=== PATIENT | female | born 1950 | race Caucasian/White ===

== ENCOUNTER 2017-04-07 18:30 | Emergency (ER) | payer MEDICARE ==
[2017-04-07 20:10] VITALS: BP 162/74
--- NOTE | 2017-04-07 20:45 | UC ---
Lower Extremity/Ankle HPI - HPI Summary HPI Summary: 67 y/o female with PMHX of HTN and hypothyrodism. She presents to the urgent care c/o severe RT first MPJ pain with swelling and redness since last night. PT states her pain is 6/10 associated with difficulty walking. Patient denies any Hx of DM or gout. She denies any injury to the foot, Denies fever, SOB, N/V /D or chest pain. Patient has not taking anything to alleviate symptoms. - History of Current Complaint Chief Complaint: UCLowerExtremity Stated Complaint: RIGHT FOOT PAIN Time Seen by Provider: 04/07/17 20:14 Hx Obtained From: Patient Hx Last Menstrual Period: n/a Onset/Duration: Sudden Onset, Lasting Hours, Still Present Severity Initially: Moderate Severity Currently: Moderate Pain Intensity: 6 - Allergies/Home Medications Allergies/Adverse Reactions: Allergies Allergy/AdvReac Type Severity Reaction Status Date / Time Codeine Allergy UNRESPONSIV Verified 04/07/17 20:10 E Home Medications: Home Medications Ibuprofen TAB* [Advil TAB*] 600 mg PO Q6H PRN 04/07/17 [History Confirmed ] PMH/Surg Hx/FS Hx/Imm Hx Endocrine History Of: Reports: Thyroid Disease Denies: Diabetes, Hyperthyroidism, Hypothyroidism, Dyslipidemia Cardiovascular History Of: Reports: Hypertension Denies: Cardiac Disorders, Pacemaker/ICD, Myocardial Infarction, Congestive Heart Failure, Atrial Fibrillation, Deep Vein Thrombosis, Bleeding Disorders Respiratory History Of: Denies: COPD, Asthma, Bronchitis, Pneumonia, Pulmonary Embolism GI/ History Of: Denies: Gastroesophageal Reflux, Ulcer, Gastrointestinal Bleed, Gall Bladder Disease, Kidney Stones, Diverticulitis, Renal Disease, Urosepsis Neurological History Of: Reports: Migraine - PRN IMITREX FOR Denies: TIA, CVA, Dementia, Seizures Psychological History Of: Reports: Depression - ON LEXAPRO Denies: Anxiety, Bipolar Disorder, Schizophrenia, Post Traumatic Stress Disorder Cancer History Of: Denies: Lung Cancer, Colorectal Cancer, Breast Cancer, Prostate Cancer, Cervical Cancer Other History Of: Negative For: HIV, Hepatitis B, Hepatitis C, Anticoagulant Therapy - Surgical History Surgical History: Yes Surgery Procedure, Year, and Place: 3 - [id number]. TUBAL( [place]1979. [place]MBILICAL HERNIA([place]1974. LEFT KNE MENISCUS REPAIR- [place]-2009. RIGHT THUMB JOINT REPAIR- ([place])1995. RIGHT STAPEDECTOMY- AT AGE 18. T&A A CHILD; left knee replacement 02/2014. R TKA--2013 - Family History Known Family History: Positive: Hypertension Negative: Cardiac Disease, Diabetes - Social History Alcohol Use: Rare Substance Use Type: None Smoking Status (MU): Former Smoker Amount Used/How Often: 11/17 PPD X 10 YEARS When Did the Patient Quit Smoking/Using Tobacco: 1993 - Immunization History Most Recent Influenza Vaccination: 2011 Most Recent Tetanus Shot: 03/2015 Most Recent Pneumonia Vaccination: NEVER HAD Review of Systems Constitutional: Negative Skin: Negative Eyes: Negative ENT: Negative Respiratory: Negative Cardiovascular: Negative Gastrointestinal: Negative Genitourinary: Negative Motor: Negative Neurovascular: Negative Musculoskeletal: Other: - RT foot MPJ pain with sweling and redness x 1 day Neurological: Negative Psychological: Negative All Other Systems Reviewed And Are Negative: Yes Physical Exam Triage Information Reviewed: Yes Appearance: Well-Appearing, No Pain Distress, Well-Nourished Vital Signs: Initial Vital Signs Pulse 81 04/07/17 20:03 Resp 12 04/07/17 20:03 BP 162/74 04/07/17 20:03 Pulse Ox 100 04/07/17 20:03 Vital Signs Reviewed: Yes Eye Exam: Normal Eyes: Positive: Conjunctiva Clear ENT Exam: Normal ENT: Positive: Hearing grossly normal, Pharynx normal, TMs normal. Negative: Nasal congestion, Tonsillar swelling Dental Exam: Normal Neck exam: Normal Neck: Positive: Supple, Nontender, No Lymphadenopathy Respiratory Exam: Normal Respiratory: Positive: Chest non-tender, Lungs clear, Normal breath sounds Cardiovascular Exam: Normal Cardiovascular: Positive: RRR, No Murmur, Pulses Normal Abdominal Exam: Normal Abdomen Description: Positive: Nontender, No Organomegaly, Soft. Negative: CVA Tenderness (R), CVA Tenderness (L) Bowel Sounds: Positive: Present Musculoskeletal Exam: Normal Musculoskeletal: Positive: ROM Intact, Other: - RT foot first MPJ tenderness on palpation, with erythema and swelling. Decrease ROM. Positive capillary refill. positive sensation, and pulses. Neurological Exam: Normal Psychological Exam: Normal Skin Exam: Normal Skin: Negative: rashes Lower Extremity Course/Dx - Differential Dx/Diagnosis Differential Diagnosis/HQI/PQRI: Arthritis, Cellulitis, Fracture (Closed), Gout , Puncture Wound Provider Diagnoses: Right foot first MPJ pain. Discharge - Discharge Plan Condition: Stable Disposition: HOME Patient Education Materials: Gout (ED) Referrals: Sonia Solano MD [Primary Care Provider] - 1 Week Additional Instructions: Patient advised to take her Advil 200mtabs PO q6hrs prn to alleviate symptoms. Blood work Sent to lab. Result will be sent to PCP. Please f/u with your PCP for further work up one 1 week. If symptoms worsen please go to the Ed or return to the urgent care in the next 2-3 days.
--- NOTE | 2017-04-07 20:56 | RAD ---
INDICATION: Atraumatic pain at the first metatarsal-phalangeal joint. COMPARISON: None. TECHNIQUE: 3 views of the right foot were obtained. FINDINGS: The adequately corticated bones are properly aligned. Joint spaces appear maintained. No fracture, dislocation or focal bony abnormality is seen. Enthesophyte formation at the calcaneal tubercle at the origin the plantar fascia is noted. IMPRESSION: Normal radiograph of the right foot. If the patient's symptoms persist, follow-up imaging is recommended.
[2017-04-08 10:12] LABS: Hematocrit 39 % (35-47); Hemoglobin 12.9 g/dl (12.0-16.0); Mean Corpuscular HGB Conc 33 g/dl (31-36); Mean Corpuscular Hemoglobin 27 pg (27-31); Mean Corpuscular Volume 82 fL (80-97); Mean Platelet Volume 8 um3 (7.4-10.4); Red Blood Count 4.76 10^6/ul (4.0-5.4); Red Cell Distribution Width 14 % (10.5-15); White Blood Count 8.1 10^3/ul (3.5-10.8)
== END 2017-04-07 21:47 | disposition home or self-care (01) ==
LOC: UCCORT 18:30
DX: M25.571 Pain in right ankle and joints of right foot (principal); E03.9 Hypothyroidism, unspecified; I10 Essential (primary) hypertension; G43.909 Migraine, unspecified, not intractable, without status migrainosus; F32.9 Major depressive disorder, single episode, unspecified; Z88.5 Allergy status to narcotic agent; Z87.891 Personal history of nicotine dependence
CPT/HCPCS: 36415; 84550; 85025; 99211; G0463

== ENCOUNTER 2018-05-24 11:12 | Day surgery (SDC) | payer MEDICARE ==
[~2018-05-24 11:12] MED LIST: Buffered Lidocaine 0.9% SYRIN* 5 ML/SYR SYRINGE INTRADERM ONE
[2018-05-24] MEDS ORDERED: Midazolam* 1 MG/ML 2 ML VIAL (2 MG) ONE (14:10)
[2018-05-24] MEDS ORDERED: Labetalol IV* 5 MG/ML 20 ML VIAL ONE (14:27)
[2018-05-24 14:38] VITALS: BP 127/69
[2018-05-24] MEDS ORDERED: Neomycin/Polymy/Dex OPTH.SUSP* MAXITROL 0.1% 5 ML ONE (15:03)
[2018-05-24] MEDS ORDERED: Phenylephrine 2.5% OPTH.SOL* 2 ML BTL ONE (15:03)
[2018-05-24] MEDS ORDERED: Lidocaine 2% EPI 1:200000 MPF*10-20 ML VIAL ONE (15:03)
[2018-05-24] MEDS ORDERED: Proparacaine 0.5% OPHTH.SOL* 15 ML BTL ONE (15:03)
[2018-05-24] MEDS ORDERED: Lidocaine 1%* 5 ML VIAL ONE (15:03)
[2018-05-24] MEDS ORDERED: Povidone Iodine 5% OPTH* 30 ML BTL ONE (15:03)
[2018-05-24] MEDS ORDERED: Ketorolac 0.5% OPHTH (NF) 0.5 % 5 ML BTL ONE (15:03)
[2018-05-24] MEDS ORDERED: Cyclopentolate 1% OPTH.SOL* 2 ML BTL ONE (15:03)
[2018-05-24] MEDS ORDERED: acetaZOLAMIDE TAB* 250 MG ONE (15:03)
--- NOTE | 2018-05-24 16:10 | OP ---
DATE OF OPERATION: 05/24/2018. DATE OF : 1950. SURGEON: Alexsander Gray M.D. PREOPERATIVE DIAGNOSIS: Cataract left eye. POSTOPERATIVE DIAGNOSIS: Cataract left eye. OPERATIVE PROCEDURE: Extracapsular cataract extraction with intraocular lens implant left eye. PROCEDURE: The patient was brought to the operating room after being given 1/2% Alcaine with epineph rine drops in the preoperative area. The eye was prepped and draped in the usual sterile fashion. S terile drape and eyelid speculum were placed. Again, topical 1/2% Alcaine with epinephrine was given . A paracentesis incision was made at the 3 o'clock position with the No.75 blade. Clear cornea inc ision 2.2 x 2.2-mm was created at the 6 o'clock position starting at the anterior limbus using the 2. 2-mm keratome. The anterior chamber was irrigated with 0.4 mL of 1% non-preservative intracameral li docaine and filled with DisCoVisc. A capsulorrhexis was completed using the cystotome and the Utrata forceps. Hydrodissection was performed with balanced salt solution. The lens nucleus was removed wi th the Phacoemulsification handpiece without incident. Cortex was removed with the irrigation-aspira tion handpiece. The capsular bag was re-inflated using DisCoVisc and an SN60WF 19.5 implant was inse rted with the shooter. The irrigation-aspiration handpiece was used to remove all residual DisCoVisc . The eye was refilled with balanced salt solution and the wound checked and found to be watertight. Topical Maxitrol drops were given. [id number]/[facility] #: [id number]
== END 2018-05-24 14:42 | disposition home or self-care (01) ==
LOC: OREAST 11:12
PROVIDERS: ATTEND Specialist
DX: H25.812 Combined forms of age-related cataract, left eye (principal); H35.372 Puckering of macula, left eye; H35.3132 Nonexudative age-related macular degeneration, bilateral, intermediate dry stage; E78.2 Mixed hyperlipidemia; E03.9 Hypothyroidism, unspecified; I10 Essential (primary) hypertension; F33.8 Other recurrent depressive disorders; M19.90 Unspecified osteoarthritis, unspecified site; Z87.891 Personal history of nicotine dependence
CPT/HCPCS: A9270-GY; J2250; V2632

== ENCOUNTER 2018-05-31 08:20 | Day surgery (SDC) | payer MEDICARE ==
[~2018-05-31 08:20] MED LIST changes: +Acetaminophen TAB* 325 MG PO PRN
[2018-05-31] MEDS ORDERED: Phenylephrine 2.5% OPTH.SOL* 2 ML BTL ONE (10:12)
[2018-05-31] MEDS ORDERED: Proparacaine 0.5% OPHTH.SOL* 15 ML BTL ONE (10:12)
[2018-05-31] MEDS ORDERED: Neomycin/Polymy/Dex OPTH.SUSP* MAXITROL 0.1% 5 ML ONE (10:12)
[2018-05-31] MEDS ORDERED: Lidocaine 1%* 5 ML VIAL ONE (10:12)
[2018-05-31] MEDS ORDERED: acetaZOLAMIDE TAB* 250 MG ONE (10:12)
[2018-05-31] MEDS ORDERED: Povidone Iodine 5% OPTH* 30 ML BTL ONE (10:12)
[2018-05-31] MEDS ORDERED: Ketorolac 0.5% OPHTH (NF) 0.5 % 5 ML BTL ONE (10:12)
[2018-05-31] MEDS ORDERED: Cyclopentolate 1% OPTH.SOL* 2 ML BTL ONE (10:12)
[2018-05-31] MEDS ORDERED: Lidocaine 2% EPI 1:200000 MPF*10-20 ML VIAL ONE (10:12)
[2018-05-31] MEDS ORDERED: Midazolam* 1 MG/ML 5 ML VIAL (5 MG) ONE (10:26)
[2018-05-31 11:32] VITALS: BP 137/68
--- NOTE | 2018-06-01 01:02 | OP ---
DATE OF OPERATION: 05/31/18 [facility] DATE OF : [birth year] SURGEON: Alexsander Gray MD PREOPERATIVE DIAGNOSIS: Cataract, right eye. POSTOPERATIVE DIAGNOSIS: Cataract, right eye. OPERATIVE PROCEDURE: Extracapsular cataract extraction with intraocular lens implant right eye. DESCRIPTION OF PROCEDURE: The patient was brought to the operating room after being given 1/2% Alcaine with epinephrine drops in the preoperative area. The eye was prepped and draped in the usual sterile fashion. Sterile drape and eyelid speculum were placed. Again, topical 1/2% Alcaine with epinephrine was given. A paracentesis incision was made at the 9 o'clock position with the No.75 blade. Clear cornea incision 2.2 x 2.2-mm was created at the 12 o'clock position starting at the anterior limbus using the 2.2-mm keratome. The anterior chamber was irrigated with 0.4 mL of 1% non-preservative intracameral lidocaine and filled with DisCoVisc. A capsulorrhexis was completed using the cystotome and the Utrata forceps. Hydrodissection was performed with balanced salt solution. The lens nucleus was removed with the Phacoemulsification handpiece without incident. Cortex was removed with the irrigation-aspiration handpiece. The capsular bag was re-inflated using DisCoVisc and an SN60WF 19.5 implant was inserted with the shooter. The irrigation-aspiration handpiece was used to remove all residual DisCoVisc. The eye was refilled with balanced salt solution and the wound checked and found to be watertight. Topical Maxitrol drops were given. [id number]/[facility] [place] #: [id number] [facility]
== END 2018-05-31 11:52 | disposition home or self-care (01) ==
LOC: OREAST 08:20
PROVIDERS: ATTEND Specialist
DX: H25.811 Combined forms of age-related cataract, right eye (principal); H35.372 Puckering of macula, left eye; H35.3132 Nonexudative age-related macular degeneration, bilateral, intermediate dry stage; E87.0 Hyperosmolality and hypernatremia; E03.9 Hypothyroidism, unspecified; F32.9 Major depressive disorder, single episode, unspecified; Z87.891 Personal history of nicotine dependence; M19.90 Unspecified osteoarthritis, unspecified site; I10 Essential (primary) hypertension
CPT/HCPCS: A9270-GY; J2250; V2632